=== PATIENT | male | born 1995 | race Caucasian/White ===

== ENCOUNTER 2016-11-21 02:12 | Emergency (ER) | payer MEDICAID | END 2016-11-21 04:30 | disposition home or self-care (01) | LOC: ER1 02:12 | DX: S43.52XA Sprain of left acromioclavicular joint, initial encounter (principal); Z98.890 Other specified postprocedural states; Y04.8XXA Assault by other bodily force, initial encounter; Y92.89 Other specified places as the place of occurrence of the external cause; Y99.0 Civilian activity done for income or pay | CPT/HCPCS: 73030; 99283 ==

== ENCOUNTER 2020-10-09 09:09 | Emergency (ER) | payer OTHER ==
[2020-10-09 11:12] LABS: HEMOGLOBIN 16.3 gm/dl (14.0-17.5); RED BLOOD COUNT 5.46 M/UL (4.20-5.50)
[2020-10-09 11:36] LABS: BUN/CREATININE RATIO 14 (0-10)
[2020-10-09] MEDS ORDERED: ZOFRAN4 MG PO (13:24)
== END 2020-10-09 13:46 | disposition home or self-care (01) ==
LOC: ER1 09:09
PROVIDERS: Physician Assistant
DX: U07.1 COVID-19 (principal); F17.200 Nicotine dependence, unspecified, uncomplicated
CPT/HCPCS: 71045; 80053; 82550; 82553; 83605; 83874; 84484; 85025; 87040; 93005; 96374; 99285; J2405; J7030